=== PATIENT | female | born 1970 | race Caucasian/White ===

== ENCOUNTER 2019-01-06 07:38 | Emergency (ER) | payer BC, OTHER ==
[2019-01-06 08:11] VITALS: BP 115/75
--- NOTE | 2019-01-06 08:45 | UC ---
General HPI - HPI Summary HPI Summary: States she was here in 2013 for similar issue and got a steroid shot and it helped. She has a hx of frozen shoulder. Past two days can barely move her left shoulder due to pain and feels this is frozen shoulder again. Denies any trauma. 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 Has never seen an orthopedist for her shoulder nor has she been to PT - History of Current Complaint Chief Complaint: UCUpperExtremity Stated Complaint: LEFT ARM PAIN Time Seen by Provider: 01/06/19 08:37 Hx Last Menstrual Period: Pain Intensity: 2 - Allergy/Home Medications Allergies/Adverse Reactions: Allergies Allergy/AdvReac Type Severity Reaction Status Date / Time aspirin Allergy See Comment Verified 01/06/19 08:12 PMH/Surg Hx/FS Hx/Imm Hx Previously Healthy: Yes - Surgical History Surgical History: Yes Surgery Procedure, Year, and Place: C SECTION - Family History Known Family History: Positive: Diabetes, Other - hypothyroid - Social History Alcohol Use: Daily Substance Use Type: None Smoking Status (MU): Former Smoker Have You Smoked in the Last Year: No When Did the Patient Quit Smoking/Using Tobacco: 20 years ago Review of Systems All Other Systems Reviewed And Are Negative: Yes Physical Exam Triage Information Reviewed: Yes Appearance: Well-Appearing Vital Signs: Initial Vital Signs Temp 98.3 F 01/06/19 08:05 Pulse 68 01/06/19 08:05 Resp 18 01/06/19 08:05 BP 115/75 01/06/19 08:05 Pulse Ox 100 01/06/19 08:05 Musculoskeletal: Positive: Other: - pinpoint tenderness over acromiom process and AC joint. Unable to provider any ROM in her Left shoulder due to pain. Good pulses and cap refill Diagnostics - Radiology left shoulder Radiology Interpretation Completed By: Radiologist Summary of Radiographic Findings: left shoulder - soft tissue calcification, acalcific tendinopathy, no acute osseous injury Course/Dx - Course Course Of Treatment: This is a 48 yr old with PMhx of calcific tendonitis and frozen shoulder presents with recurrence of her frozen shoulder xray: soft tissue calcification, acalcific tendinopathy, no acute injury Plan Follow up with Dr. Trejo from orthopedics - [facility] today at 1:30 [facility] - Diagnoses Provider Diagnosis: Frozen shoulder Discharge - Sign-Out/Discharge Documenting (check all that apply): Patient Departure All imaging exams completed and their final reports reviewed: Yes - Discharge Plan Condition: Stable Disposition: HOME Patient Education Materials: Adhesive Capsulitis (ED) Referrals: SOLA Lacey [Primary Care Provider] - Joe Trejo MD [Medical Doctor] - Additional Instructions: Follow up with Dr. Trejo from orthopedics - Apt today at 1:30 1122 [facility] - Billing Disposition and Condition Condition: STABLE Disposition: Home
== END 2019-01-06 09:28 | disposition home or self-care (01) ==
LOC: UCCORT 07:38
DX: M75.02 Adhesive capsulitis of left shoulder (principal); M75.32 Calcific tendinitis of left shoulder; Z88.8 Allergy status to other drugs, medicaments and biological substances; Z87.891 Personal history of nicotine dependence
CPT/HCPCS: 99201; G0463